=== PATIENT | male | born 1995 | race Caucasian/White ===

== ENCOUNTER 2025-01-14 17:55 | Emergency (ER) | payer MEDICAID ==
[~2025-01-14] VITALS: Ht 182.9 cm; Wt 81.8 kg
[2025-01-14 18:46] LABS: MEAN PLATELET VOLUME 7.6 FL (7.4-10.4); RED CELL DISTRIBUTION WIDTH 14.7 % (11.5-14.5)
[2025-01-14 19:25] LABS: CREATININE 1.03 MG/DL (0.60-1.10); TOTAL CARBON DIOXIDE 23.3 MMOL/L (24-32); eCRCL 116 ML/MIN; eGFR 85 ML/MIN
--- NOTE | 2025-01-14 20:51 | RADIOLOGY REPORT ---
Exam: DI ABDOMEN,SINGLE VIEW(KUB) Indication: abd pain hernia (upright) Comparison: None Technique: 1 radiographic views of the abdomen. Findings: Nonobstructive bowel gas pattern noted. There is no definite evidence for pneumoperitoneum. No abnormal calcifications noted. Impression: 1. Nonobstructive bowel gas pattern noted.
[2025-01-14 21:47] LABS: LEUKOCYTE ESTERASE ,URINE NEGATIVE (Neg); NITRITES, URINE NEGATIVE (Neg); OCCULT BLOOD,URINE NEGATIVE (Neg)
[2025-01-14 22:07] LABS: UA COLLECTION TYPE CLN CATCH MIDSTREAM
[2025-01-14 22:16] LABS: MUCUS STRANDS MODERATE /LPF (Neg); SQUAMOUS EPITHELIAL CELL,UR FEW /LPF (FEW)
[2025-01-14 22:17] LABS: WBC CLUMPS,URINE FEW /HPF (NEGATIVE)
--- NOTE | 2025-01-14 23:57 | Physician Documentation ---
History of Present Illness Chief Complaint: Vomiting Stated Complaint: GENERAL ILLNESS Time Seen by MD: 23:55 OK to notify your PCP?: Yes Primary Medical Doctor: n/a Source: patient, RN/MD, EMS, RN notes reviewed, EMS notes reviewed, old records Mode of Arrival: EMS Exam Limitations: no limitations HPI 30 year old male seen in bed 17 presents to the emergency department for complaints of vomiting that began last night. He states he has been nauseous, vomiting, feeling chills, and diaphoretic. He also states that he slept for 14 hours today and is still feeling weak and tired. He states he has only been able to keep a little soup down. Of note he also complains of hernia pain that has been present since 12/31/2024 and is present in his groin. Medication Reconciliation Allergies: Coded Allergies: No Known Allergies (Unverified , 01/14/25) Scheduled PRN ONDANSETRON ODT 4mg tablet (Ondansetron Odt), 1 TAB PO Q6H PRN PRN for nausea/vomiting Past Medical History Past Medical History: Hernia Past Surgical History: no surgical history Drug Use: none Review of Systems All Other Systems at this time: Reviewed and Negative ROS As stated above in the HPI, otherwise all systems are reviewed and negative. Physical Exam Vital Signs: RN Vital Signs have been reviewed: Yes, Temperature: 98.2, Source: Temporal, Heart Rate: 120, Respiratory Rate: 20, BP: 148/103, Pulse Oximetry: 98, Weight: 81.820 Oxygen Flow Rate: 0 Pulse Oximetry Reflects: adequate oxygenation Physical Exam General: The patient is well developed, well nourished, nontoxic appearing and is in no acute distress. Skin: [place], warm and dry with no rashes. HEENT: Head was normocephalic and atraumatic. Eyes - pupils equal, round, reactive to light and accommodation. Extraocular movements were intact. Conjunctivae were nonicteric. Ears - bilateral tympanic membranes were normal. The mouth and oropharynx were clear with moist mucous membranes. There were no pharyngeal exudates or erythema. Neck: Supple and nontender. There was no jugular venous distention, lymphadenopathy, thyromegaly or masses. Chest: Clear to auscultation bilaterally without wheezes, rales or rhonchi. No accessory muscle use. No dullness to percussion. Heart: Rate regular and rhythmic. S1, S2. No murmurs. Palpation of the chest wall was normal. No rubs or thrills. Abdomen: Right inguinal hernia. Soft, nontender and nondistended. Positive bowel sounds. No guarding or rebound. Extremities: No cyanosis, clubbing or edema. The patient moves all extremities. Pulses were equal and symmetric. Neurologic: Cranial nerves II-XII were intact. Sensation was intact to light touch throughout. Motor strength was 5/5 in all four extremities. Deep tendon reflexes were intact in both upper and lower extremities. Psychologic: The patient was oriented to person, place and time. The patient demonstrated appropriate judgement and insight. Progress Results/Orders Reviewed/noted all lab results: Yes Results/Orders Orders - JAMES CHAVEZ MD Abdomen,Single View(Kub) (01/14/25 20:41) Completed Orders - JAMES CHAVEZ MD Abdomen,Single View(Kub) (01/14/25 20:41) Vital Signs 01/14/25 01/14/25 17:56 20:31 Temp 98.2 Pulse 120 Resp 20 B/P (MAP) 148/103 Pulse Ox 98 O2 Flow Rate 0 Laboratory Tests Test 01/14/25 18:22 01/14/25 21:11 White Blood Count 7.6 Red Blood Count 4.40 L Hemoglobin 14.8 Hematocrit 42.7 Mean Corpuscular Volume 97.1 Mean Corpuscular Hemoglobin 33.6 H Mean Corpuscular Hemoglobin Concent 34.6 Red Cell Distribution Width 14.7 H Platelet Count 216 Mean Platelet Volume 7.6 Neutrophils (%) (Auto) 70.2 Lymphocytes (%) (Auto) 19.0 L Monocytes (%) (Auto) 10.2 Eosinophils (%) (Auto) 0.4 Basophils (%) (Auto) 0.2 Neutrophils # (Auto) 5.3 Lymphocytes # (Auto) 1.4 Monocytes # (Auto) 0.8 Eosinophils # (Auto) 0.0 Basophils # (Auto) 0.0 CBC Comment Sodium Level 138 Potassium Level 3.1 L Chloride Level 105 Carbon Dioxide Level 23.3 L Anion Gap 10 Blood Urea Nitrogen 5 L Creatinine 1.03 Estimated GFR/1.73 m2 85 BUN/Creatinine Ratio 4.9 L Glucose Level 117 H Calcium Level 8.6 Total Bilirubin 1.7 H Aspartate Amino Transf (AST/SGOT) 21 Alanine Aminotransferase (ALT/SGPT) 30 Alkaline Phosphatase 94 Total Protein 7.0 Albumin 3.9 Globulin 3.1 Albumin/Globulin Ratio 1.3 Lipase 21 Chemistry Comments Urine Specimen Description Cln catch midstream Urine Color Yellow Urine Clarity Clear Urine pH 6.0 Urine Specific [place] >=1.030 Urine Protein Trace Urine Glucose (UA) Negative Urine Ketones 15 H Urine Occult Blood Negative Urine Nitrite Negative Urine Bilirubin Small Urine Urobilinogen 0.2 Urine Leukocyte Esterase Negative Urine RBC 3-10 Urine WBC 10-20 H Urine WBC Clumps Few Urine Squamous Epithelial Cells Few Urine Bacteria Few Urine Mucus Moderate Urine Culture Indicated Indicated Volume Urine Centrifuged 10 ml Urine Comment Microbiology Date/Time Source Procedure Growth Status 01/14/25 22:18 Urine Clean Catch Midstream Urine Culture - Preliminary Culture received. Resulted Re-Evaluation Re-Evaluation : Re-Evaluation: Improved Progress Patient was seen and examined. Patient is given reassurance. Patient received an IV line laboratory work was obtained. CBC was within normal limits. Chemistry showed slight increase in bilirubin at 1.7 otherwise LFTs lipase within normal limits. Chemistry shows a low potassium at 3.1 and mild metabolic acidosis with a CO2 of 23.3 borderline. Patient's urinalysis showed some dehydration with a specific gravity of 1.030 with negative nitrates and negative leukocyte esterase but 10-20 WBCs and in clumps as well. Few squamous epithelial cells. Patient's KUB showed a nonobstructive bowel gas pattern. Patient received potassium magnesium for the electrolyte abnormalities as far as the GI symptoms patient received fluid boluses Zofran and Toradol. With time patient's symptoms seemed to improve. He was given reassurance and ultimately discharged home. child care associate teacher interpretation shows time this tachycardia heart rate 120s, abnormal, my interpretation. Later at time of discharge heart rate was in the 90s, normal, my interpretation. Pulse oximetry monitor interpretation shows normal oxygenation at 99% room air, normal, my interpretation. EKG/XRAY/CT/US/VASC/MRI Abdominal X-Ray : Additional Comment Exam: DI ABDOMEN,SINGLE VIEW(KUB) Indication: abd pain hernia (upright) Comparison: None Technique: 1 radiographic views of the abdomen. Findings: Nonobstructive bowel gas pattern noted. There is no definite evidence for pneumoperitoneum. No abnormal calcifications noted. Impression: 1. Nonobstructive bowel gas pattern noted. Electronically Signed by:ANNA ANTONIO MD Date & Time: 01/14/252048 Medical Decision Making Additional info obtained from: old records Differential Dx:Considerations: Include: Bowel obstruction, Cholangitis, Cholelithasis, Constipation, Diverticular disease, Esophagitis, Gastritis/PUD, Gastroenteritis, GI hemorrhage, Hernia, Hepatitis, Inflammatory BD, Ischemic bowel, Pancreatitis, Urinary obstruction, Urinary tract infection, Urolithiasis, Other Departure Time of Disposition: 00:14 Disposition: 01 HOME / SELF CARE / HOMELESS Impression: Primary Impression: Gastroenteritis Condition: Stable Discharge Instructions: Viral Gastroenteritis, Adult Referrals: NO PRIMARY CARE PROVIDER (PCP) Prescriptions ONDANSETRON ODT 4mg tablet (ONDANSETRON ODT) 4 Mg Tab.rapdis 1 TAB PO Q6H PRN PRN for nausea/vomiting for 4 Days, #16 TAB 0 Refills Prov: JAMES CHAVEZ MD 01/15/25 Education Educated: Patient Educated regarding: diagnosis, treatment, prognosis Signature Scribe Signature: Scribed for James Chavez MD by Valencia Marie . 01/15/25 00:15 Attestation: The note accurately reflects work and decisions made by me.James Chavez MD 01/14/25 23:57 JAMES CHAVEZ MD Jan 14, 2025 23:57 VALENCIA MITCHELL Jan 15, 2025 00:15
[2025-01-15] MEDS ORDERED: ONDA-243 PO (00:07)
[2025-01-15] MEDS: normal saline 1000ML IV soln IVB ONE (00:16)
[2025-01-15] MEDS: ondansetron/PF 4mg/2ml inj IV ONE (00:17)
[2025-01-15] MEDS: ketorolac trometh 15mg/ml vial 15 MG/ML ML IV ONE (00:18)
[2025-01-15] MEDS: magnesium sulf-water 2g/50mL 50 ML IV ONE (00:19)
[2025-01-15] MEDS: potassium CL 10mEq/100ml bag 100 ML IV ONE (00:19)
[2025-01-15 01:33] VITALS: BP 136/89; PULSE 92; RESP 16; TEMP 98.6; O2SAT 99
== END 2025-01-15 01:37 | disposition home or self-care (01) ==
LOC: ER 17:55
DX: K52.9 Noninfective gastroenteritis and colitis, unspecified (principal)
CPT/HCPCS: 36415; 74018; 80053; 81001; 83690; 85025; 87088; 96365; 96375; 99284; J1885; J2405; J3480; J7030

== ENCOUNTER 2025-06-10 08:29 | Day surgery (SDC) | payer MEDICAID ==
[2025-06-03 11:18] LABS: MEAN PLATELET VOLUME 7.7 FL (7.4-10.4); PRE OP HEMATOCRIT 44.1 % (42.0-52.0); PRE OP HEMOGLOBIN 14.7 g/dL (14.0-17.9); PRE OP PLATELET COUNT 345 X10'3 (140-440); PRE OP WHITE BLOOD COUNT 6.8 10'3 (4.8-10.8); RED CELL DISTRIBUTION WIDTH 14.5 % (11.5-14.5)
[2025-06-03 11:30] LABS: CREATININE 0.77 MG/DL (0.60-1.10); PRE OP ALT 34 U/L (30-65); PRE OP ANION GAP 8 (8-16); PRE OP AST 28 U/L (10-37); PRE OP BILIRUB, TOTAL 0.3 MG/DL (0.0-1.0); PRE OP GLUCOSE 96 MG/DL (70-104); PRE OP POTASSIUM 3.9 MMOL/L (3.4-5.1); PRE OP SODIUM 143 MMOL/L (135-145); TOTAL CARBON DIOXIDE 29.2 MMOL/L (24-32); eGFR > 90 ML/MIN
[~2025-06-10] VITALS: Ht 182.9 cm; Wt 77.1 kg
[2025-06-10] VITALS (18 sets, daily range): BP systolic 96–126; BP diastolic 63–82; PULSE 69–112; RESP 12–28; O2SAT 95–100
[~2025-06-10 08:29] MED LIST: ATOR20TA66 PO; ONDA-103 PO; ceFAZolin 2gm/dext,iso 50mL 50 ML IV ONE; ringers solution, lacted 1,000 ML IV SCH
[2025-06-10] MEDS ORDERED: BUPIVAcaine 2.5mg/ml inj 50ml vial (contains preservative) ONE (09:41)
[2025-06-10] MEDS ORDERED: BUPIVAcaine/PF 2.5mg/ml (0.25%) 10ml vial ONE (09:41)
[2025-06-10] MEDS ORDERED: LIDOcaine 1% 30ml preserv. free vial ONE (09:42)
[2025-06-10] MEDS ORDERED: BUPIVACAINE liposomal/PF 13.3 MG/ML 10mL vial IM ONE (09:42)
[2025-06-10] MEDS ORDERED: hydrALAZINE 20mg/ml inj. IV PRN (09:45)
[2025-06-10] MEDS ORDERED: fentaNYL/PF 50MCG/1 ML 2ML syringe IV PRN ×2 (09:45)
[2025-06-10] MEDS ORDERED: labetalol 20mg/4ml (5mg/ml) syringe IV PRN (09:45)
[2025-06-10] MEDS ORDERED: morphine 4 MG/ML inj SYRINge IV PRN (09:45)
[2025-06-10] MEDS ORDERED: ringers solution, lacted 1,000 ML IV SCH ×2 (09:45)
[2025-06-10] MEDS ORDERED: ondansetron/PF 4mg/2ml inj IV PRN (09:45)
--- NOTE | 2025-06-10 09:45 | HISTORY AND PHYSICAL ---
History & Physical Providers to CC CC: NICO DE LA CRUZ MD ~ History of Present Illness Reason for Admit\Complaint: Umbilical hernia, right inguinal hernia History of Present Illness Interval history and physical exam Patient here today for elective repair of his umbilical hernia and right inguinal hernia He was seen in the office greater than 30 days ago but denies any change in his past medical history (please see previous history and physical exam for all pertinent details) He is scheduled for umbilical hernia repair as well as robotic assisted, laparoscopic right possible left inguinal hernia repair with mesh Allergies: Coded Allergies: No Known Allergies (Unverified , 01/14/25) Home Medications Home Medications Active Reported Ondansetron HCl 4 Mg Tablet 1 Tab PO Q4HPRN PRN 3 Days Atorvastatin Calcium 20 Mg Tablet 1 Tab PO DAILY ROS ROS Reviewed and negative Exam General: 30-year-old male in no acute distress Chest: Lungs are clear to auscultation bilaterally Cardiovascular: Regular rate and rhythm without murmurs Abdomen: Soft and nondistended Right side marked with indelible ink Problems: (1) Right inguinal hernia (2) Umbilical hernia Additional Plan Risks, benefits, and alternatives to an umbilical hernia repair as well as robotic assisted, laparoscopic right possible left inguinal hernia repair with mesh were discussed with the patient. Risks include, but are not limited to, bleeding, infection, injury to intra-abdominal structures, hernia recurrence and chronic postoperative pain. Patient verbalized understanding and wishes to proceed with surgery. We will do so today as scheduled Sepsis Screening Reassessment Date: Jun 10, 2025 NICO DE LA CRUZ MD Jun 10, 2025 09:45
[2025-06-10] MEDS ORDERED: dexmedetomidine 200mcg/2ml inj. IV ONE (10:04)
[2025-06-10] MEDS ORDERED: dexamethasone sod phosphate 4mg/ml inj. ONE (10:08)
[2025-06-10] MEDS ORDERED: ondansetron/PF 4mg/2ml inj ONE (10:08)
[2025-06-10] MEDS ORDERED: rocuronium 10mg/ml inj IV ONE (10:08)
[2025-06-10] MEDS ORDERED: propofol inj 20 ML IV ONE ×3 (10:08)
[2025-06-10] MEDS ORDERED: fentaNYL/PF 50MCG/1 ML 2ML syringe ONE (10:08)
[2025-06-10] MEDS ORDERED: glycopyrrolate 0.2mg/ml inj ONE (10:08)
[2025-06-10] MEDS ORDERED: acetaminophen 1,000mg/100ml IV 100 ML IV ONE (10:09)
[2025-06-10] MEDS: BUPIVAcaine/PF 2.5 mg/ml (0.25%) 30ml vial IJ ONE (10:30)
[2025-06-10] MEDS: LIDOcaine 1% 30ml preserv. free vial IJ ONE (10:30)
--- NOTE | 2025-06-10 12:00 | OPERATIVE REPORT ---
Operative Report Providers to CC: SONY DE LA CRUZ MD ~ Date of Procedure: Jun 10, 2025 Pre-Operative Diagnosis: Umbilical hernia, right inguinal hernia Post-Operative Diagnosis Umbilical hernia Bilateral inguinal hernias Procedure Performed Umbilical hernia repair-1 cm Robotic assisted, laparoscopic bilateral inguinal hernia repair with mesh Surgeon: Sony De La Cruz MD FACS [employer] None Anesthesiologist: Tomy Gill Type of Anesthesia: General Findings: Moderate-sized indirect right inguinal hernia Moderate-sized indirect left inguinal hernia 1-2 cm umbilical hernia Wound class I Complications None Prosthetics\Implants used: Bilateral large Dextile inguinal hernia mesh Estimated Blood Loss: Minimal Specimen Removed: Herniated preperitoneal fat and umbilical hernia sac excised and discarded Description of Procedure: Patient was brought to the operating room and identified by the nursing staff and the attending physician. Patient was placed supine and general anesthesia was induced. The patient's abdomen was prepped and draped in the standard sterile fashion. Preoperative antibiotics were given. Supraumbilical, midline incision was made to accommodate a 12 mm Núñez port. During dissection, a massive herniated preperitoneal fat and hernia sac was encountered associated with the umbilicus. This was mobilized away from the dermis down to the level of the fascia. Excess hernia sac and preperitoneal fat was excised and discarded. There was a 1 cm fascial defect. Fascial edges were freshened and this was used for Núñez port placement. Núñez technique was used to gain access into the abdomen and the port was anchored to the fascia with 0 Vicryl suture. Abdomen was insufflated without incident. Laparoscope was inserted and the pelvis examined. Patient was placed in Trendelenburg position. Secondary, 8.5 mm robotic trochars were then placed in the right lateral left lateral upper abdomen just above the umbilical line. These were placed under laparoscopic guidance. Local anesthetic was infiltrated prior to their insertion. The da Ashley robotic arm was docked to the patient. Instruments were guided intra-abdominally under laparoscopic visualization. Peritoneal rent was created starting at the left anterior superior iliac spine and carried across the anterior abdominal wall to the contralateral anterior superior iliac spine. The peritoneal flap was created and carried down to the symphysis pubis. Dissection was carried out bilaterally. A moderate-sized indirect inguinal hernia was encountered on the right side and a moderate-sized indirect inguinal hernia was encountered in the left side. These were both completely reduced. Peritoneum was dissected away from the cord structures and out laterally to accommodate 2 separate pieces of large Dextile mesh. Bilateral critical views of the myopectineal orifice were obtained. Mesh and suture was passed into the abdomen. Bilateral mesh was placed covering potential obturator, femoral, direct, and indirect hernia spaces. Mesh was anchored at Henry's ligament, rectus muscle in the midline, and out laterally just anterior to the anterior superior iliac spine. Mesh laid without wrinkles or folds. Peritoneal rent was then reapproximated with running, absorbable 2/0 V-lock suture. [place] were retrieved. Abdomen was allowed to desufflate after instruments removed and da Ashley robotic arm undocked from the patient. Umbilical port was removed as were the secondary trochars. The fascia at the umbilical port site was closed with a combination of 0 Ethibond and 0 Vicryl sutures, thus repairing the umbilical hernia defect. Skin was closed at all sites with 4-0 Monocryl sutures in a subcuticular fashion. Sterile dressings were applied. Patient was awakened and taken to the postanesthesia care unit in stable condition. Counts repoted as correct: Yes SONY DE LA CRUZ MD Jun 10, 2025 12:00
[2025-06-10] MEDS: HYDROcodone/acetaminophen 5mg/325mg tablet PO PRN (14:15)
== END 2025-06-10 14:31 | disposition home or self-care (01) ==
LOC: PAS 08:29
PROVIDERS: ATTEND Surgery
DX: K40.20 Bilateral inguinal hernia, without obstruction or gangrene, not specified as recurrent (principal); K42.9 Umbilical hernia without obstruction or gangrene; E78.5 Hyperlipidemia, unspecified; F12.90 Cannabis use, unspecified, uncomplicated; F10.90 Alcohol use, unspecified, uncomplicated; Z87.891 Personal history of nicotine dependence; Z79.899 Other long term (current) drug therapy; Y90.9 Presence of alcohol in blood, level not specified
CPT/HCPCS: 36415; 49591; 49650; 80053; 82948; 85025; C1781; J0131; J0666; J1100; J2003; J2405; J2704; J2710; J3010; J3490; J7030; J7120; S2900; Z7506; Z7508; Z7512; A4215; A4618